=== PATIENT | female | born 1950 | race Caucasian/White ===

== ENCOUNTER → 2023-10-24 | Outpatient (REF) | payer MEDICARE ==
[~2023-10-24] MED LIST: CEFUROXIME250 MG PO; CLOPIDOGREL75 MG PO; HYZAAR 100-251 EACH; IOPAMIDOL 370 MG/ML 100 ML INFUS..BTL INJ ONE; METFORMIN HCL500 MG PO; METOPROLOL SUCC25 MG PO; MODAFINIL PO; OMEPRAZOLE40 MG PO; OZEMPIC2 MG/0.75; SODIUM CHLORIDE 0.9% 500ML 500 ML ONE; TRELEGY ELLIPT1 EACH; TRICOR48 MG PO
== END ==
LOC: DX 10:41
PROVIDERS: ATTEND Urology
DX: Z43.6 Encounter for attention to other artificial openings of urinary tract (principal); N13.30 Unspecified hydronephrosis
CPT/HCPCS: 74425; C1729; C1769; J7040; Q9967; 50435

== ENCOUNTER → 2023-11-23 | Day surgery (SDC) | payer MEDICARE ==
[2023-11-21 15:26] LABS: BASOPHILS # (AUTO) 0.1 (0.0-0.1); EOSINOPHILS # (AUTO) 0.6 (0.0-0.4); EOSINOPHILS % 6.3 % (0.0-6.0); HEMATOCRIT 41.5 % (34.2-44.1); HEMOGLOBIN 13.9 g/dL (12.0-16.0); LYMPHOCYTES # (AUTO) 3.1 (1.0-3.2); LYMPHOCYTES % 33.2 % (18.0-39.1); MEAN CORPUSCULAR HEMOGLOBIN 30.1 pg (28-32); MEAN CORPUSCULAR HGB CONC 33.5 g/dL (31-35); MEAN CORPUSCULAR VOLUME 89.8 fL (81-99); MONOCYTES # (AUTO) 0.6 (0.2-0.8); MONOCYTES % 6.3 % (4.4-11.3); PLATELET COUNT 310 x10e3/uL (140-360); RED BLOOD COUNT 4.62 x10e6/uL (3.6-5.1); RED CELL DISTRIBUTION WIDTH 14.7 % (11.7-14.4); WHITE BLOOD COUNT 9.36 x10e3/uL (4.8-10.8)
[~2023-11-23] MED LIST changes: +ALBUTEROL 90 MCG/ACT INHALER INH ONE; +EPHEDRINE SULFATE INJ 50 MG/ML VIAL ONE; +FENTANYL CITRATE/PF 100MCG/2 ML INJ ONE; +GLYCOPYRROLATE INJ 0.2 MG/ML VIAL ONE; -IOPAMIDOL 370 MG/ML 100 ML INFUS..BTL INJ ONE; +LIDOCAINE HCL 2% LOCAL INJ 5 ML SDV VIAL INJ ONE; +ONDANSETRON HCL INJ 2MG/ML 2ML 2 MG/ML VIAL ONE; +PHENYLEPHRINE HCL 1% 10 MG/ML VIAL ONE; +PROPOFOL IV EMULSION 10 MG/ML 20 ML VIAL ONE; +SEVOFLURANE INHAL SOLN 250 ML PEN BTL ONE; -SODIUM CHLORIDE 0.9% 500ML 500 ML ONE
[2023-11-23] MEDS: CEFTRIAXONE 1 GM VIAL ONE (12:36)
[2023-11-23] MEDS: LACTATED RINGER'S 1,000 ML ONE (12:36)
[2023-11-23 12:47] LABS: ANION GAP 17.3 mmol/L (8-16); CALCIUM 9.5 mg/dL (8.4-10.2); CREATININE, SERUM 1.4 mg/dL (0.57-1.11); POTASSIUM 4.3 mmol/L (3.5-5.1)
[2023-11-23 14:22] VITALS: TEMP 98.2
[2023-11-23 15:10] VITALS: BP 166/78; PULSE 82; RESP 16; O2SAT 98
== END | disposition home or self-care (01) ==
LOC: OR 12:00
PROVIDERS: ATTEND Urology
DX: N20.1 Calculus of ureter (principal); Z93.6 Other artificial openings of urinary tract status; N13.1 Hydronephrosis with ureteral stricture, not elsewhere classified; N17.9 Acute kidney failure, unspecified; N39.0 Urinary tract infection, site not specified; N20.0 Calculus of kidney; D35.02 Benign neoplasm of left adrenal gland; I25.10 Atherosclerotic heart disease of native coronary artery without angina pectoris; E11.9 Type 2 diabetes mellitus without complications; E66.01 Morbid (severe) obesity due to excess calories; I10 Essential (primary) hypertension; I25.2 Old myocardial infarction; E78.5 Hyperlipidemia, unspecified; F32.A Depression, unspecified; F17.200 Nicotine dependence, unspecified, uncomplicated; Z01.810 Encounter for preprocedural cardiovascular examination; Z01.812 Encounter for preprocedural laboratory examination; Z79.02 Long term (current) use of antithrombotics/antiplatelets; Z79.84 Long term (current) use of oral hypoglycemic drugs; Z79.85 Long-term (current) use of injectable non-insulin antidiabetic drugs; Z79.899 Other long term (current) drug therapy; Z68.34 Body mass index [BMI] 34.0-34.9, adult; Z95.5 Presence of coronary angioplasty implant and graft; Z80.52 Family history of malignant neoplasm of bladder
CPT/HCPCS: 36415 ×2; 52356; 74420; 80048; 82948; 85025; 88300; 93005; C1758; C1769; C2617; J0696; J2001; J2371; J2405; J2704; J3010; J7121